=== PATIENT | female | born 1965 | race Caucasian/White ===

== ENCOUNTER → 2018-08-30 | Outpatient (CLI) | payer OTHER ==
[~2018-08-30] MED LIST: Aspir 8181 MG PO; BENTYL20 MG PO; CYCL0.05OP; CYCL10 PO; Cymbalta60 MG PO; DIVA500EC PO; DOCU100 PO; DULO60 PO; HYDACE5 PO; HYDR1TAB94 PO; LAMICTAL XR200 MG PO; LAMO100 PO; LORA1 PO; METF500 PO; METF500C PO; METF850 PO; Norco 5-325 Ta1 EACH PO; ONDA4ODT MM; Omeprazole20 M1 PO; POTBIC25 PO; PRAZ1 PO; Pyridium100 MG PO; SERT100 PO
[2018-08-30 13:01] LABS: BASOPHILS ABSOLUTE AUTO 0.07 K/mm3 (0.00-0.23); BASOPHILS PERCENT AUTO 1 % (0-2); EOSINOPHILS ABSOLUTE AUTO 0.19 K/mm3 (0.00-0.68); EOSINOPHILS PERCENT AUTO 2 % (0-6); Hematocrit 43.4 % (33.0-51.0); IMMATURE GRAN ABSOLUTE AUTO 0.05 K/mm3 (0.00-0.10); IMMATURE GRAN PERCENT AUTO 1 % (0-1); LYMPHOCYTES ABSOLUTE AUTO 2.61 K/mm3 (0.84-5.20); LYMPHOCYTES PERCENT AUTO 29 % (21-46); MONOCYTES ABSOLUTE AUTO 0.65 K/mm3 (0.16-1.47); MONOCYTES PERCENT AUTO 7 % (4-13); Mean Corpuscular HGB 31.4 pg (26.0-34.0); Mean Corpuscular HGB Conc 32.3 g/dL (31.5-36.5); Mean Corpuscular Volume 97 fL (80-100); Mean Platelet Volume 10.3 fL (9.1-12.4); NEUTROPHILS ABSOLUTE AUTO 5.47 K/mm3 (1.96-9.15); NEUTROPHILS PERCENT AUTO 60 % (41-73); Platelet Count 291 K/mm3 (150-400); RDW Standard Deviation 46.4 fL (35.1-46.3); Red Blood Cell Count 4.46 M/mm3 (3.80-5.20); White Blood Cell Count 9.04 K/mm3 (4.00-11.30)
[2018-08-30 13:54] LABS: Alanine Aminotransfer (ALT/SGP 53 U/L (12-78); Albumin, Blood 3.8 g/dL (3.4-5.0); Albumin/Globulin Ratio 1.1 (0.8-1.8); Alk Phos 122 U/L (50-136); Anion Gap 8 mmol/L (6-16); Aspartate Aminotrans (AST/SGOT 30 U/L (12-37); Bilirubin, Total 0.4 mg/dL (0.1-1.0); Blood Urea Nitrogen 11 mg/dL (8-24); Bun/Creatinine Ratio 17.6 (12.0-20.0); CHOL/HDL RATIO 6.5; CO2, Blood 27 mmol/L (21-32); Calcium, Blood 9.3 mg/dL (8.5-10.1); Chloride, Blood 106 mmol/L (98-108); Cholesterol 234 mg/dL (50-200); Creatinine, Blood 0.63 mg/dL (0.40-1.00); Globulin, Blood 3.5 g/dL (2.2-4.0); Glomerular Filtration Rate >60 (60-); Glucose, Blood 177 mg/dL (70-99); HDL Cholesterol 36 mg/dL (>39); LDL/HDL RATIO 4.5; Low Density Lipoprotein Chol 161 mg/dL (0-110); Sodium, Blood 141 mmol/L (136-145); Total Protein, Blood 7.3 g/dL (6.4-8.2); Triglycerides 185 mg/dL (30-160); Very Low Density Lipoprot Chol 37 mg/dL (6-32)
[2018-08-30 14:10] LABS: Microalb/Creat Ratio UR, Rand 9.695 mg/g (0.000-30.000); Microalbumin, Random Urine 19.1 mg/L (0.000-20.000)
== END | disposition home or self-care (01) ==
LOC: LAB SRC 09:21 → LAB SHORT 09:21
PROVIDERS: Nurse Practitioner Family
DX: E11.9 Type 2 diabetes mellitus without complications (principal); F31.9 Bipolar disorder, unspecified; E78.5 Hyperlipidemia, unspecified
CPT/HCPCS: 80053; 80061; 80175; 82043; 82570; 83036; 85025

== ENCOUNTER 2018-09-19 06:48 | Day surgery (SDC) | payer OTHER ==
[~2018-09-19] VITALS: Ht 160 cm; Wt 76.0 kg
--- NOTE | 2018-09-19 07:46 | NUR ---
History, Chart, Medications and Allergies reviewed before start of procedure. Patient states colon prep results clear. Patient States Post-Procedure ride home has been arranged.
--- NOTE | 2018-09-19 08:24 | NUR ---
09/19/18 0824 Tyler Brasher PATIENT DETERMINED TO BE ASA APPROPRIATE FOR PROPOFOL SEDATION PRIOR TO START OF PROCEDURE BY DR. MORALES. 3-LEAD EKG REVIEWED WITH PHYSICIAN PRIOR TO START OF PROCEDURE. PATIENT CONFIRMS NPO STATUS AND AGREES WITH SCHEDULED PROCEDURE. History, Chart, Medications and Allergies reviewed before start of procedure. MONITOR INTACT WITH CONTINUOUS PULSE OXIMETRY AND INTERMITTENT BP.O2 VIA N/C INTACT THROUGHOUT SEDATION/PROCEDURE, VIA POM MASK AT 10 L O2. Bite Block Placed IMMEDIATELY PREPROCEDURE.
--- NOTE | 2018-09-19 08:32 | NUR ---
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 SKIN INTACT.
--- NOTE | 2018-09-19 08:56 | NUR ---
AFTER PROCEDURE ENDED, [employer]STER[employer] PROGRAMMER RN OBSERVED DECUBITIS TO LEFT CHEEK HAD A 2MM OPEN BLISTER.
--- NOTE | 2018-09-19 09:02 | NUR ---
PATIENT WAKING SOMEWHAT RESTLESS, S/O AT BEDSIDE AND WAKING PATIENT PROVIDING REASSURANCE.
--- NOTE | 2018-09-19 09:21 | NUR ---
PATIENT NOW UP TO HIGH ROYAL-FOWLERS TO ATTEMPT PO FLUIDS, MORE AWAKE.
--- NOTE | 2018-09-19 09:23 | NUR ---
PATIENT SIPPING APPLE JUICE WITHOUT DIFFICULTY AT THIS TIME. PATIENT GIVEN HER DENTURE AND GLASSES. 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 DENIES NAUSEA.
--- NOTE | 2018-09-19 09:29 | NUR ---
PATIENT UP TO THE EDGE OF THE BED WITHOUT DIZZINESS OR DIFFICULTIES. S/O NO LONGER CONCERNED ABOUT ORIENTATION OF PATIENT. PATIENT ABLE TO ANSWER ALL QUESTIONS APPROPRIATELY. REMEMBERS ALL THE RNS THAT ASSISTED WITH HER ADMIT CARE.
--- NOTE | 2018-09-19 09:39 | NUR ---
CALL PLACED FOR PATIENT'S [facility], RESPONSIBLE S/O TO ACCOMPANY PATIENT HOME, NEITHER DRIVE.
== END 2018-09-19 09:48 | disposition home or self-care (01) ==
LOC: ORSCMMR 06:48 → ORD 08:00 → ORSCMMR 09:48
PROVIDERS: Internal Medicine Gastroenterology
PROC: 0DBL8ZX Excision of Transverse Colon, Via Natural or Artificial Opening Endoscopic, Diagnostic (ICD-10-PCS; principal; 2018-09-19 08:00)
PROC: 0DB68ZX Excision of Stomach, Via Natural or Artificial Opening Endoscopic, Diagnostic (ICD-10-PCS; principal; 2018-09-19 08:00)
PROC: 0DBM8ZX Excision of Descending Colon, Via Natural or Artificial Opening Endoscopic, Diagnostic (ICD-10-PCS; principal; 2018-09-19 08:00)
PROC: 0DBN8ZX Excision of Sigmoid Colon, Via Natural or Artificial Opening Endoscopic, Diagnostic (ICD-10-PCS; principal; 2018-09-19 08:00)
DX: K29.70 Gastritis, unspecified, without bleeding (principal); K62.5 Hemorrhage of anus and rectum; D12.3 Benign neoplasm of transverse colon; K63.5 Polyp of colon; K64.4 Residual hemorrhoidal skin tags; E11.9 Type 2 diabetes mellitus without complications; G40.909 Epilepsy, unspecified, not intractable, without status epilepticus; F31.9 Bipolar disorder, unspecified; Z79.899 Other long term (current) drug therapy; F17.210 Nicotine dependence, cigarettes, uncomplicated
CPT/HCPCS: 82947; 87081; 88305; 88342; J2704; J7120

== ENCOUNTER → 2019-01-07 | Outpatient (CLI) | payer OTHER ==
[~2019-01-07] MED LIST changes: +ATOR80 PO; +GLIM2 PO; +LAMICTAL XR50 MG PO; +LOSA25 PO
[2019-01-11 09:07] LABS: COTININE 536.9 ng/mL (.); NICOTINE 1236.4 ng/mL (.)
== END | disposition home or self-care (01) ==
LOC: LAB SHORT 13:43 → LAB SRC 13:43 → LAB 13:43 → LAB FUT 01-02 14:55
PROVIDERS: Radiology Diagnostic Radiology
DX: F17.200 Nicotine dependence, unspecified, uncomplicated (principal)
CPT/HCPCS: G0480

== ENCOUNTER → 2019-01-14 | Outpatient (CLI) | payer OTHER | END | disposition home or self-care (01) | LOC: LAB SHORT 11:55 → LAB SRC 11:55 | DX: Z72.0 Tobacco use (principal) | CPT/HCPCS: G0480 ==

== ENCOUNTER 2019-04-30 08:34 | Day surgery (SDC) | payer OTHER ==
[~2019-04-30] VITALS: Ht 160 cm; Wt 79.0 kg
[2019-04-30] MEDS ORDERED: Aspir 8181 MG PO (09:13)
--- NOTE | 2019-04-30 15:33 | NUR ---
PT UP TO USE RESTROOM WITH NO COMPLICATIONS. NO BLEEDING, HEMATOMA OR OOZING NOTED AT SITE. VSS. PT AOX4. DENIES ANY PAIN. PT DRESSED SELF WITH NO COMPLICATIONS. PT STATES UNDERSTANDING OF DISCHARGE INSTRUCTIONS AND CARE OF ACCESS SITE INSTRUCTIONS. IV DCD WITH CATH INTACT. PT CALLED [facility] AND DCD HOME.
== END 2019-04-30 15:30 | disposition home or self-care (01) ==
LOC: MHTC 08:34
DX: I70.212 Atherosclerosis of native arteries of extremities with intermittent claudication, left leg (principal); Z88.0 Allergy status to penicillin; Z88.5 Allergy status to narcotic agent; Z88.8 Allergy status to other drugs, medicaments and biological substances
CPT/HCPCS: 37225; 75625; 75716; 75774; 85347; 99152; 99153; C1714; C1760; C1769; C1884; C1887; C1894; C2623; J1644; J2250; J3010; J7030; Q9967

== ENCOUNTER → 2020-01-21 | Outpatient (CLI) | payer OTHER ==
[2020-01-22 16:10] LABS: HPV 16 Negative (Negative); HPV 18 Negative (Negative); HPV OTHER HR TYPES Negative (Negative)
== END | disposition home or self-care (01) ==
LOC: LAB SHORT 13:45 → LAB 13:45
PROVIDERS: Nurse Practitioner Family
DX: Z12.4 Encounter for screening for malignant neoplasm of cervix (principal)
CPT/HCPCS: 87624; G0123